=== PATIENT | female | born 1975 | race Two or more races ===

== ENCOUNTER 2017-05-30 10:05 | Inpatient (IN) | payer OTHER ==
[2017-05-30] VITALS (14 sets, daily range): BP systolic 103–130; BP diastolic 55–81
[~2017-05-30] VITALS: Ht 160 cm; Wt 64.4 kg
[~2017-05-30 10:05] MED LIST: ceFAZolin sod 2 GM in D5W 110 ML IVPB ONE
[2017-05-30] MEDS ORDERED: NKM (10:10)
[2017-05-30] MEDS ORDERED: MACROBID100 MG ORAL (10:43)
--- NOTE | 2017-05-30 12:39 | Pre-Procedure Note/Attestation ---
Pre-Procedure Note/Attestation Complete Prior to Procedure Procedure Narrative: TLIF L4-5 and L5-S1 with instrumentation and decompression Indications for Procedure Pre-Operative Diagnosis: Lumbar radiculopathy and annular tear Attestation I attest that I discussed the nature of the procedure; its benefits; risks and complications; and alternatives (and the risks and benefits of such alternatives ), prior to the procedure, with the patient (or the patient's legal retention representative). I attest that, if there was a reasonable possibility of needing a blood transfusion, the patient (or the patient's legal retention representative) was given the [facility] standardized written summary, pursuant to the [place] Blood Safety Act ([place] Health and Safety Code # 1645, as amended). I attest that I re-evaluated the patient just prior to the surgery and that there has been no change in the patient's H&P, except as documented below: DARNELL MERINO May 30, 2017 12:39
[2017-05-30] MEDS ORDERED: Bacitracin 50000 Units Vial ONE (12:52)
[2017-05-30] MEDS ORDERED: Thrombin 5000 units TOPIC ONE (12:52)
[2017-05-30] MEDS ORDERED: Vancomycin 1gm inj IVPB ONE (12:52)
[2017-05-30] MEDS ORDERED: Bupivacaine w/Epi 0.5% 30ml Vial INJ ONE (12:52)
[2017-05-30] MEDS ORDERED: LR 1000ml 1,000 ML IVLG SCH (12:55)
[2017-05-30] MEDS ORDERED: fentaNYL 100 mcg/2 mL IV ONE (13:00)
[2017-05-30] MEDS ORDERED: Meperidine 25mg/0.5ml Inj (FOR RIGORS ONLY) IV PRN (13:00)
[2017-05-30] MEDS ORDERED: Propofol 10mg/ml 100ml btl IV ONE (13:00)
[2017-05-30] MEDS ORDERED: LORazepam Inj 2mg/ml 1ml IV PRN (13:00)
[2017-05-30] MEDS ORDERED: Zemuron 50mg/5ml Inj IV ONE (13:00)
[2017-05-30] MEDS ORDERED: DiphenhydrAMINE 50mg/ml Inj IVP PRN (13:00)
[2017-05-30] MEDS ORDERED: LR 1000ml ONE (13:00)
[2017-05-30] MEDS ORDERED: Midazolam 2mg/2ml Inj ONE (13:00)
[2017-05-30] MEDS ORDERED: NS Irrig 1000ml ONE (13:00)
[2017-05-30] MEDS ORDERED: Sterile Water Irrig 1000ml IRRIG ONE (13:00)
--- NOTE | 2017-05-30 13:01 | Anethesia Preoperative Eval ---
Anesthesia Pre-op PMH/ROS General Date of Evaluation: May 30, 2017 Time of Evaluation: 12:30 Anesthesiologist: Celso ASA Score: ASA 1 Mallampati Score Class I : Soft palate, uvula, fauces, pillars visible Class II: Soft palate, uvula, fauces visible Class III: Soft palate, base of uvula visible Class IV: Only hard plate visible Mallampati Classification: Class II Surgeon: Mickie Diagnosis: Disc protrusion Surgical Procedure: Transforaminal lumbar interbody fusion Family History: no anesthesia problems Allergies: Coded Allergies: No Known Allergies (Unverified , 05/29/17) Medications: see eMAR Past Medical History Cardiovascular: Denies: CAD, HTN, NH, arrhythmia, other, valve dz Pulmonary: Denies: COPD, THANH, asthma, other Gastrointestinal/Genitourinary: Denies: CRI, ESRD, GERD, other Neurologic/Psychiatric: Denies: CVA, TIA, dementia, depression/anxiety, other Endocrine: Denies: DM, hypothyroidism, other, steroids HEENT: Denies: PO[place] IRA (L), PO[place] IRA (R), cataract (L), cataract (R), glaucoma, other Hematology/Immune: Denies: DVT, anemia, bleeding disorder, other Musculoskeletal/Integumentary: Denies: DDD, DJD, OA, RA, edema, other PMH Narrative: Denies significant PMH PSxH Narrative: Right foot surgery Anesthesia Pre-op Phys. Exam Physician Exam Last Vital Signs Date Time Temp Pulse Resp B/P Pulse Ox O2 Delivery O2 Flow Rate FiO2 05/30/17 10:54 97.3 68 20 130/76 100 Room Air Constitutional: NAD Neurologic: CN 2-12 intact Cardiovascular: RRR, no M/R/G Respiratory: CTA Airway Exam Mallampati Score: Class II MO: full ROM: full Teeth: intact Anesthesia Pre-op A/P Labs WNL Urine Test Test 05/30/17 10:15 Urine HCG, Qualitative Negative Risk Assessment & Plan Assessment: Healthy female for transforaminal lumbar interbody fusion Plan: GETA, SedLine Status Change Before Surgery: Yes Pre-Antibiotics Drug: Ancef Given Within 1 Hr of Incision: Yes Time Given: 13:15 STEVEN MARSHALL M.D. May 30, 2017 13:01
--- NOTE | 2017-05-30 13:02 | Immediate Post-Op Evaluation ---
Immediate Post-Op Evalulation Immediate Post-Op Evalulation Procedure: Transforaminal lumbar interbody fusion Date of Evaluation: May 30, 2017 Time of Evaluation: 19:10 IV Fluids: 3500 Blood Products: 250 Estimated Blood Loss: 600 Urinary Output: 100 Blood Pressure Systolic: 104 Blood Pressure Diastolic: 56 Pulse Rate: 77 Respiratory Rate: 12 O2 Sat by Pulse Oximetry: 100 Temperature (Fahrenheit): 97.1 Pain Score (1-10): 0 Nausea: No Vomiting: No Complications No complication Patient Status: reacts, patent, extubated, none Hydration Status: adequate Drug: Ancef Given Within 1 Hr of Incision: Yes Time Given: 13:15 STEVEN MARSHALL M.D. May 30, 2017 13:02
[2017-05-30] MEDS ORDERED: LR 1000ml 1,000 ML IV SCH (14:45)
[2017-05-30 17:06] LABS: BASOPHILS % (AUTO) 1.3 % (0.0-2.0); EOSINOPHILS % (AUTO) 2.7 % (0.0-3.0); LYMPHOCYTES % (AUTO) 34.3 % (20.0-45.0); MEAN CORPUSCULAR HGB CONC 33.3 G/DL (32.0-36.0); MEAN CORPUSCULAR VOLUME 84 FL (80-99); MEAN PLATELET VOLUME 6.5 FL (6.5-10.1); MONOCYTES % (AUTO) 4.2 % (1.0-10.0); NEUTROPHILS % (AUTO) 57.5 % (45.0-75.0); PLATELET COUNT 125 K/UL (150-450); RED CELL DISTRIBUTION WIDTH 14.1 % (11.6-14.8)
--- NOTE | 2017-05-30 19:20 | Brief Operative Note ---
Immediate Post Operative Note Operative Note Pre-op Diagnosis: Lumbar radiculopathy and annular tear Procedure: TLIF L45 and L5S1 Post-op Diagnosis: same as pre-op Surgeon: deric [employer] Shift Manager: lary Anesthesiologist: abimael Anesthesia: general Specimen: none Complications: none Condition: stable Fluids: 3.2L Estimated Blood Loss: volume - 600cc Drains: hemovac Implant(s) used?: Yes DARNELL MERINO May 30, 2017 19:20
[2017-05-30] MEDS: Hydromorphone 0.5mg/0.5ml inj IVP PRN ×2 (20:13→20:32)
[2017-05-30] MEDS ORDERED: HYDROmorphone 1mg/ml Carpuject SUBQ PRN (21:30)
[2017-05-30] MEDS ORDERED: Norco 5mg/325mg tab ORAL PRN (21:30)
[2017-05-30] MEDS ORDERED: Naloxone 0.4mg/ml Inj IVP PRN (21:30)
[2017-05-30] MEDS ORDERED: Norco 7.5mg/325mg tab ORAL PRN (21:30)
[2017-05-30] MEDS: HYDROmorphone 1mg/ml Carpuject IVP PRN (21:39)
[2017-05-30] MEDS: ceFAZolin sod 1 GM in D5W 55 ML IV SCH (22:12)
[2017-05-31 00:16] VITALS: BP 120/73
[2017-05-31 01:09] LABS: BASOPHILS % (AUTO) 0.5 % (0.0-2.0); EOSINOPHILS % (AUTO) 1.2 % (0.0-3.0); LYMPHOCYTES % (AUTO) 11.3 % (20.0-45.0); MEAN CORPUSCULAR HEMOGLOBIN 28.3 PG (27.0-31.0); MEAN CORPUSCULAR HGB CONC 33.1 G/DL (32.0-36.0); MEAN CORPUSCULAR VOLUME 86 FL (80-99); MEAN PLATELET VOLUME 7.1 FL (6.5-10.1); MONOCYTES % (AUTO) 6.9 % (1.0-10.0); NEUTROPHILS % (AUTO) 80.1 % (45.0-75.0); PLATELET COUNT 223 K/UL (150-450); RED BLOOD COUNT 3.23 M/UL (4.20-5.40); RED CELL DISTRIBUTION WIDTH 13.6 % (11.6-14.8); WHITE BLOOD COUNT 8.6 K/UL (4.8-10.8)
[2017-05-31 04:00] VITALS: BP 114/69
[2017-05-31] MEDS: HYDROmorphone 1mg/ml Carpuject IVP PRN ×2 (04:39→23:49)
[2017-05-31] MEDS: ceFAZolin sod 1 GM in D5W 55 ML IV SCH ×2 (05:45→14:08)
[2017-05-31 06:29] LABS: BASOPHILS % (AUTO) 0.6 % (0.0-2.0); EOSINOPHILS % (AUTO) 1.4 % (0.0-3.0); LYMPHOCYTES % (AUTO) 14.1 % (20.0-45.0); MEAN CORPUSCULAR HEMOGLOBIN 27.7 PG (27.0-31.0); MEAN CORPUSCULAR HGB CONC 31.9 G/DL (32.0-36.0); MEAN CORPUSCULAR VOLUME 87 FL (80-99); MEAN PLATELET VOLUME 7.6 FL (6.5-10.1); MONOCYTES % (AUTO) 6.6 % (1.0-10.0); NEUTROPHILS % (AUTO) 77.3 % (45.0-75.0); PLATELET COUNT 228 K/UL (150-450); RED BLOOD COUNT 3.12 M/UL (4.20-5.40); WHITE BLOOD COUNT 6.6 K/UL (4.8-10.8)
--- NOTE | 2017-05-31 07:25 | 48 Hour Post Anesthesia Eval ---
Post Anesthesia Evaluation Procedure: Transforaminal lumbar interbody fusion Date of Evaluation: May 31, 2017 Time of Evaluation: 06:20 Blood Pressure Systolic: 114 0: 69 Pulse Rate: 80 Respiratory Rate: 19 Temperature (Fahrenheit): 97.7 O2 Sat by Pulse Oximetry: 100 Airway: patent Nausea: No Vomiting: No Pain Intensity: 2 Hydration Status: adequate Cardiopulmonary Status: Stable Mental Status/LOC: patient returned to baseline Follow-up Care/Observations: 0 Post-Anesthesia Complications: 0 Follow-up care needed: N/A Todd Turcios MD May 31, 2017 07:25
[2017-05-31 08:00] VITALS: BP 113/67
[2017-05-31] MEDS: Docusate 100mg cap ORAL SCH ×2 (10:07→17:40)
[2017-05-31 11:56] VITALS: BP 105/62
--- NOTE | 2017-05-31 12:29 | General Progress Note ---
Progress Note Progress Note Doing well. Min lbp. no leg pain. walking without difficulty avss a and o times 3 inc cdi hv pulled abd soft and nt calves soft and nt 5/5 motor in the le lt intact cr less than 2 seconds Hg 8.6 A: Doing well post op HD stable med f/u pain meds ambulate brace is on and in place---continue fu 7 days stable no HD symptoms DARNELL MERINO May 31, 2017 12:29
--- NOTE | 2017-05-31 13:30 | Diagnostic Imaging Report ---
Indication: PAIN intraoperative Technique: Digital intraoperative images Comparison: None Findings: Intraoperative images demonstrate localizing needles posterior to what are presumably the L3-4 disc, and L5 vertebral body. Subsequent images document posterior fusion of L4, L5, and S1, and placement of disc spacers at the L4-5 and L5-S1 discs. Impression: Intraoperative imaging, as described
[2017-05-31 15:58] VITALS: BP 109/65
[2017-05-31 20:39] VITALS: BP 107/65
[2017-05-31] MEDS: Norco 7.5mg/325mg tab ORAL PRN (20:40)
[2017-06-01] VITALS (7 sets, daily range): BP systolic 94–120; BP diastolic 44–74
[2017-06-01] MEDS: Norco 7.5mg/325mg tab ORAL PRN ×2 (04:33→15:38)
--- NOTE | 2017-06-01 07:00 | Operative Note - Dictated ---
DATE OF OPERATION: 05/30/2017 PREOPERATIVE DIAGNOSIS: L4-5 disk protrusion with annular tear and L5-S1 disk protrusion with collapse and stenosis and left lower extremity radiculopathy with positive diskography and concordant pain at L4-L5 and L5-S1 with normal control at L3-4. POSTOPERATIVE DIAGNOSIS: L4-5 disk protrusion with annular tear and L5-S1 disk protrusion with collapse and stenosis and left lower extremity radiculopathy with positive diskography and concordant pain at L4-L5 and L5-S1 with normal control at L3-4. PROCEDURE PERFORMED: 1. L4, L5, S1 posterior pedicle screw instrumentation. 2. L4-5 and L5-S1 posterolateral arthrodesis with local autograft and allograft. 3. Posterior interbody fusion via the left-sided transforaminal approach at L4-L5 and L5-S1 with PEEK interbody device. 4. Posterior osteotomy at L4-L5 and L5-S1. 5. Placement of PEEK interbody device at L4-L5 and L5-S1. 6. Intraoperative use of microscope. 7. Intraoperative use of fluoroscopy. 8. Placement of local autograft and allograft. 9. SSEP, free running, and stimulus evoked EMG. SURGEON: Eduar Corado M.D. OPERATIONS LABEL CLERK: Julian Justice. ANESTHESIOLOGIST: Sergio Houston M.D. ANESTHESIA: General endotracheal anesthesia. EBL: 600 mL. FLUID: 3.4 liters of crystalloid with one unit of packed red blood cells. INTRAOPERATIVE FINDINGS: Disc protrusion with stenosis at L4-L5 and L5-S1. The disk height collapse at L5-S1 with foraminal stenosis. INDICATIONS: This is a pleasant female, who failed nonoperative treatments. Options for above treatment was given to the patient. Risks, alternatives, and benefits were discussed at length. Risks include, but are not limited to, anesthesia complications including , medical complications including liver, kidney, and cardiopulmonary deficits, bleeding infection, dural tear, CSF leak, nerve root injury, fracture instability, screw cutoff, screw failure. Worsening back pain and leg pain and continued symptoms. The patient understood and wished to proceed. Also discussed with pseudarthrosis and nonunion. The patient agreed and wished to proceed. Consent form was signed. DESCRIPTION OF OPERATION: The patient was brought into the operating room supine on a stretcher. Appropriate IV lines were placed by the anesthesiologist and 2 g of Ancef was administered before skin incision. Surgical time-out was called. The patient was identified and surgical site was identified. Consent form was reviewed. Allergies were reviewed. Anesthesia was induced. The patient was successfully intubated. Sequential compression devices were placed on to the bilateral lower extremities. The Saenz was placed under sterile conditions. The patient was gently turned prone on the Eder frame table. Previously EMG and SSEP leads were placed and baseline recordings were done by the Neurophysiology plastic surgery technician. At this point, the abdomen was found to lie freely. Preoperative fluoroscopy was used to plan the incision over the midline over L4, L5, and S1 pedicles. An indelible marker was used to faina the midline. The patient was prepped and draped in usual sterile fashion with chlorhexidine scrub, ChloraPrep and Ioban draping. My special education assistant as well as myself were prepped and gowned in the appropriate fashion. At this point, the intraoperatively sterilely draped microscope was brought into the field and a #15 scalpel was used to make a midline incision. With monopolar cautery a subperiosteal dissection was carried out at L4-L5 and L5-S1 including the transverse process of L4, L5 and the sacral ala as well as the mammillary processes at L4 and L5. Once this was done, retractors were set into place and a radiopaque marker was placed at the level of the L5 pedicle and the lateral fluoroscopy identified at the L5 pedicle and thus the L4-L5 and L5-S1 interspaces. Attention was first diverted to doing a left-sided decompression and osteotomies at L4-5 and subsequently the interbody fusion at L4-L5 and L5-S1. With first attention was diverted to the left side at L5-S1. With a high speed drill, straight and curved curette as well as #2 through #5 Kerrison punches as well as a nerve hook an intralumbar laminotomy, medial facetectomy, and removal of the ligamentum flavum was done. Complete decompression of the lateral recess was done and the decompression was taken to the level of the S1 pedicle on the left side. The S1 pedicle was well skeletonized. At this point, a large ruperto was placed underneath the pars interarticularis at L5 and with a high speed drill, a posterior osteotomy of the inferior facet of L5 was done and a complete facetectomy of the inferior articular facet of L5 was done for a complete decompression of the exiting left L5 nerve root. Once this was accomplished, attention was diverted to the superior articular facet at S1. A Hardin probe was placed just cephalad to the S1 pedicle and with a high-speed drill, the superior articular facet of S1 was completely removed and thus the complete facetectomy was accomplished for excellent visualization of the disk space at L5-S1 and excellent decompression of not only the lateral recess as well as the foramina for the exiting L5 nerve root and the traversing and exiting S1 nerve root on the left side. At this point, a [place] 4 retractor was used to gently medially retract the neural elements including the S1 nerve root. There was a large epidural veins and with bipolar cautery the epidural veins were carefully coagulated and with the use of Gelfoam thrombin and FloSeal. Bleeding was controlled. Now, the disk was encountered at L5-S1 and disk protrusion was found impinging on the neural elements including the exiting L5 nerve root and the traversing S1 nerve root. With a #11 blade, a box incision was carried out into the posterior anulus and a radical diskectomy was done at L5-S1 with the use of pituitary rongeur, worse with bright with straight pituitary rongeur, forward angled pituitary rongeur, Argelia box curettes, as well as martha endplate cartilage was removed. Endplate bone was well preserved. At this point, once a complete discectomy was done disk space irrigation was completed and attention was diverted to placement of the trial from the midback system. At L5-S1 at 22 x 11 x 7 mm trial was found to fit well into the interbody space with recreation of disk height. Before the trial was placed. An interspinous diver's tender was used to gently distract the L5-S1 disk space. Once the trial was placed, the intraspinous distractor was removed and the trial was found to be well fitting at the L5-S1 disk space with excellent apposition against the superior and inferior endplates with recreation of disk height. At this point, the trial was removed and PEEK interbody device from the midback system was chosen was packed with bone morphogenic protein as well as allograft putty. Bone morphogenic protein was also placed into the anterior interbody space. Once this was accomplished, the neural elements again were gently retracted with a nerve root retractor by the special education assistant and the interbody PEEK device was gently tamped into place at L5-S1. X-rays AP and lateral fluoroscopy was done and the PEEK interbody device was found to be in excellent position. At this point, attention now was diverted to the L4-L5 interspace on the left side with a high-speed drill, straight and curved curette as well as #2 through #5 Kerrison punch. The laminotomy and medial facetectomy was first done and the ligamentum flavum was removed. The L5 pedicle was skeletonized and decompression of the lateral recess was done. Now a long cottonoid patties was placed underneath the pars articularis of L4 and with a high speed drill, a osteotomy of the inferior articular process of L4 was accomplished. Once this was done, a Favian probe was placed just cephalad to the L5 pedicle and a high-speed drill was used to osteotomize and completely removed the superior articular facet of L5, and thus a complete decompression of the foramina . Once this was accomplished, a [place] 4 retractor was used to gently medially retract the neural elements including the traversing L5 nerve root. There are large epidural veins and with bipolar cautery FloSeal, and Gelfoam thrombin the epidural veins were controlled and coagulated appropriately. Once this was accomplished, there was a disk protrusion at L4-L5 and with a #11 blade, a box incision was carried out and a radical diskectomy at L4-L5 was accomplished with the same prior instruments including pituitary rongeur, straight and forward angled, Argelia curette, box curettes, as well as martha. Once this was accomplished, disk space irrigation was done and a trial from the system measuring 22 x 11 x 9 mm was found to be well fitting and the interbody space before the trial was placed and interspinous diver's tender was used to gently open the disk space and then the trial was placed. The interspinous diver's tender was released and the trial was found to be well fitting and posed against the endplates well. At this point, the trial was removed and a peek interbody device measuring 22 x 11 x 9 millimeters was chosen packed with allograft and bone morphogenic protein. Bone morphogenic protein was also placed into the anterior aspect of the interbody space first and subsequently with the use of the interspinous diver's tender, the PEEK interbody device was placed into the interbody space via trans foraminal approach on the left side and was found to be well fitting at L4-5. AP and lateral x-rays were done and the PEEK interbody device was found to be in appropriate position. Once this was done, copious irrigation, triple antibiotics irrigation was used and now attention was diverted to placement of the pedicle screws. Attention was first diverted to the left side and with a high-speed drill, the mamillary process of L4 was drilled approximately 2 to 3 mm and with a lengthy probe, the center of the pedicle was probed and found with the use of AP and lateral fluoroscopy. The pedicle was tapped with the appropriate sized tap and a 5.0 x 45 millimeter pedicle screws from the [employer] system was placed. The screw was found to have excellent purchase. Now, attention was diverted to the left side at L5 and again with a high-speed drill, and subsequently a Lenke probe, the center of the pedicle was probed and please note that after the center of the pedicle was probed and after the pedicles were tapped, a ball-tip probe was used to do that every pedicle bilaterally at L4, L5, and S1 to palpate all four maya as well as the floor of the canal which were all evident and present. Now at L5 on the left side, appropriate sized tap was used and subsequently, a 6.0 x 40 mm screw was placed. Every screw had excellent purchase and tap within the pedicle well and AP and lateral fluoroscopy was used to verify the screws was well placed. Now attention was diverted to the left side at S1. With a high-speed drill, the starting point was made and the probe was used to find the center of the pedicle at S1 with fluoroscopic control tap was used ball-tip probe was used and a 6.0 x 40 mm screw was placed and the screw had excellent purchase. Now, attention was diverted to the right side with the same instruments in the same order of events, the following screws were placed on the right side without any incident on the right side at L4 5.0 x 45 mm screw on the right side at L5 6.1 x 45 mm screw, on the right side at S1 6.0 x 35 mm screws. Each screw had excellent purchase. Now stimulus evoked EMG were done and at points and at 20 milliamps of current, there was no conduction nerve and the pedicles were deemed to be safe not only via AP and lateral fluoroscopy, but also by stimulus evoked EMGs. Now a complete decortication of the facet joints on the right side as well as the sacral ala, and transverse process at L4 and L5 was completed and now attention was diverted to placement of the riky appropriate size rods were used 6 and 65 mm set screws were placed. There is no cross threading of the set screws. A torque wrench was used to the set screws appropriately and each set screws sat beneath the locking mechanism of the pedicle screws without any problems. Final AP and lateral fluoroscopy was done. The wound was copiously irrigated with triple antibiotic solution. Valsalva was done at 40 mmHg and there was no CSF leak. A 2 mL of Tisseel was placed at the annulotomy sites at L4-L5 and L5-S1 and now attention was diverted to closure of a subfascial Hemovac drain was placed. The dorsal lumbar fascia was closed with #1 Vicryl sutures in watertight interrupted fashion. Hemostasis was achieved with bipolar cautery and the subdermal and subcuticular layers were closed with 2-0 Vicryl sutures. The skin was closed with Dermabond. All sponge, needle, and instrument counts were correct. Sterile dressing tape was placed. The patient was turned supine, was extubated in stable condition, was taken to the recovery room in stable condition, and was transferred to the floor for observation and admission. Eduar Corado M.D. DR: DALI JOB#: [id number] CC:
[2017-06-01 07:12] LABS: BASOPHILS % (AUTO) 0.5 % (0.0-2.0); EOSINOPHILS % (AUTO) 0.7 % (0.0-3.0); LYMPHOCYTES % (AUTO) 9.6 % (20.0-45.0); MEAN CORPUSCULAR HEMOGLOBIN 27.6 PG (27.0-31.0); MEAN CORPUSCULAR HGB CONC 31.5 G/DL (32.0-36.0); MEAN CORPUSCULAR VOLUME 88 FL (80-99); MEAN PLATELET VOLUME 7.2 FL (6.5-10.1); MONOCYTES % (AUTO) 8.1 % (1.0-10.0); NEUTROPHILS % (AUTO) 81.2 % (45.0-75.0); PLATELET COUNT 202 K/UL (150-450); RED BLOOD COUNT 3.09 M/UL (4.20-5.40); WHITE BLOOD COUNT 9.1 K/UL (4.8-10.8)
[2017-06-01] MEDS: Docusate 100mg cap ORAL SCH (08:06)
[2017-06-01] MEDS ORDERED: Tubing IV Secondary IV ONE (17:29)
--- NOTE | 2017-06-04 08:21 | Discharge Summary ---
Discharge Summary Hospital Course Date of Admission May 30, 2017 at 10:05 Date of Discharge Jun 01, 2017 at 17:30 Admitting Diagnosis lumbar radiculopathy, annular tear Reason for Hospitalization: elective surgery HPI Ale Church is a 41 year old female who was admitted on May 30, 2017 at 10:05 for L4-5 lumbar radiculopathy and annular tear all conservative measures failed and the patient was admitted for elective surgery Procedures s/p 05/30 dr Corado 1. L4, L5, S1 posterior pedicle screw instrumentation. 2. L4-5 and L5-S1 posterolateral arthrodesis with local autograft and allograft. 3. Posterior interbody fusion via the left-sided transforaminal approach at L4-L5 and L5-S1 with PEEK interbody device. 4. Posterior osteotomy at L4-L5 and L5-S1. 5. Placement of PEEK interbody device at L4-L5 and L5-S1. 6. Intraoperative use of microscope. 7. Intraoperative use of fluoroscopy. 8. Placement of local autograft and allograft. 9. SSEP, free running, and stimulus evoked EMG. Hospital Course course of recovery uneventful VSS neurovascular status intact drain was pulled out incision C/D/I pain management PT/OT eval and Rx ambulated with brace on voided freely tolerated diet bowel regimen HH at baseline, no trend down stable for dc outpt fup with surgeon FINAL DIAGNOSIS Lumbar radiculopathy and annular tear s/p TLIF L45 and L5S1 anemia Discharge Condition Upon Discharge: stable Discharge Disposition Patient was discharged home Discharge Diagnoses: Discharge Instructions Discharge Instructions Special Instructions I have been assigned to complete a D/C Summary on this account. I was not involved in the patient management Yanelis Hinson NP ([place]) Jun 04, 2017 08:21
== END 2017-06-01 17:30 | disposition home or self-care (01) | DRG 460 ==
LOC: SDSOVERFLO 10:05 → 3E 17:18
DX: M51.16 Intervertebral disc disorders with radiculopathy, lumbar region (principal); D64.9 Anemia, unspecified; M48.06 Spinal stenosis, lumbar region; M51.17 Intervertebral disc disorders with radiculopathy, lumbosacral region
CPT/HCPCS: 36415; 72020; 76001; 81025; 85025; 86850; 86900; 86901; 86920; 87081; J2180; J2250; J2405